=== PATIENT | male | born 1985 | race Caucasian/White ===

== ENCOUNTER 2022-10-08 12:12 | Emergency (ER) | payer BC ==
[2022-10-08 12:46] VITALS: BP 130/83; PULSE 81; RESP 18; TEMP 98.3; BMI 25.0
[2022-10-08] MEDS ORDERED: LOPERAMIDE HCL 2 MG CAPSULE PO ONE ×2 (13:21→13:25)
[2022-10-08] MEDS ORDERED: LOPERAMIDE HCL 2 MG CAPSULE ONE ×2 (13:25→13:38)
== END 2022-10-08 15:17 | disposition home or self-care (01) ==
LOC: JER 12:12
DX: R19.7 Diarrhea, unspecified (principal)
CPT/HCPCS: 0241U-QW; 99283-25